=== PATIENT | female | born 1985 | race Caucasian/White ===

== ENCOUNTER → 2016-12-24 | Outpatient (CLI) | payer OTHER | END | disposition home or self-care (01) | LOC: C.LABSPEC 18:03 | PROVIDERS: ATTEND Physician Assistant | DX: N89.8 Other specified noninflammatory disorders of vagina (principal) ==

== ENCOUNTER → 2018-04-11 | Outpatient (CLI) | payer OTHER ==
[2018-04-11 09:54] LABS: BASO % 0.2 %; BASO ABS # 0.02 K/uL (0-0.2); EOS % 0.5 %; EOS ABS # 0.04 K/uL (0-0.5); HEMATOCRIT 38.8 % (37-47); HEMOGLOBIN 13.5 g/dL (12.0-16.0); IG# 0.02 K/uL (0.00-0.02); LYMPH % 28.8 %; LYMPH ABS # 2.41 K/uL (1.2-3.4); MEAN CELL VOLUME 92.8 fL (80-100); MEAN CORPUSCULAR HEMOGLOBIN 32.3 pg (25-34); MEAN CORPUSCULAR HGB CONC 34.8 g/dl (32-36); MONO % 6.3 %; MONO ABS # 0.53 K/uL (0.11-0.59); NEUT ABS # 5.34 K/uL (1.4-6.5); PLATELET COUNT 212 K/uL (130-400); RED CELL DISTRIBUTION WIDTH SD 40.8 fL (36.4-46.3); WHITE BLOOD COUNT 8.36 K/uL (4.8-10.8)
== END | disposition home or self-care (01) ==
LOC: C.LAB1850 08:49
PROVIDERS: ATTEND Obstetrics & Gynecology
DX: Z34.81 Encounter for supervision of other normal pregnancy, first trimester (principal); Z3A.00 Weeks of gestation of pregnancy not specified

== ENCOUNTER → 2018-04-11 | Outpatient (CLI) | payer OTHER | END | disposition home or self-care (01) | LOC: C.PAPS 11:09 | PROVIDERS: ATTEND Obstetrics & Gynecology | DX: Z34.81 Encounter for supervision of other normal pregnancy, first trimester (principal); Z3A.00 Weeks of gestation of pregnancy not specified ==

== ENCOUNTER 2018-04-29 20:53 | Emergency (ER) | payer OTHER ==
[~2018-04-29] VITALS: Ht 162.6 cm; Wt 64.2 kg
[2018-04-29 20:59] VITALS: TEMP 37; Ht 162.6 cm; Wt 64.2 kg
[2018-04-29] MEDS ORDERED: AMOX250C3 PO (21:19)
[2018-04-29] MEDS ORDERED: PRENTAB26 PO (21:21)
--- NOTE | 2018-04-29 21:31 | EMERGENCY ROOM VISIT NOTE ---
History First contact with patient: 21:17 Chief Complaint: ED VAG BLEEDING Stated Complaint: 10 WKS PREG - VAGINAL BLEEDING History of Present Illness The patient is a 32 year old female who presents to the Emergency Room with complaints of vaginal bleeding and . The patient states she is currently approximately 10-11 weeks . She reports that she began developing pinkish vaginal bleeding approximately 2 hours prior to arrival. She states that there is a small amount of blood when she wipes, but she has not noticed any blood in the toilet or on her underwear. She reports some associated lower abdominal cramping pain which she rates a 4/10. She states this is on both sides and radiates slightly into the back. She has had 2 previous pregnancies which both went full-term. She does state that she had bleeding with both of these pregnancies, although she believes it was earlier in the . She denies any medical problems. She is seeing [facility] and did have an ultrasound recently which confirmed an IUP. She denies nausea/vomiting, changes in bowel movements or urinary symptoms. Review of Systems A complete 10 point review of systems was reviewed with the patient with pertinent positives and negatives as per history of present illness. All else were negative. Past Medical/Surgical History Medical Problems: (1) No significant active problems Social History Smoking Status: Former Smoker Marital Status: Housing Status: lives with family Current/Historical Medications Scheduled Amoxicillin (Amoxil), 1 CAP PO TID Multivit/Min/Iron/Fol Ac/Pren ( Vitamin), 1 TAB PO DAILY Physical Exam Vital Signs Date Time Temp Pulse Resp B/P (MAP) Pulse Ox O2 Delivery O2 Flow Rate FiO2 04/29/18 23:32 73 18 106/74 100 Room Air 04/29/18 20:59 37.0 69 16 124/81 100 Room Air Physical Exam VITALS: Vitals are noted on the nurse's note and reviewed by myself. Vital signs stable. GENERAL: This is a 32-year-old female, in no acute distress, nondiaphoretic, well-developed well-nourished. SKIN: The skin is without rashes. HEENT: Normocephalic. PERRLA. Mucous membranes moist. Neck supple with trachea midline. HEART: Regular rate and rhythm without murmurs gallops or rubs. LUNGS: Clear to auscultation bilaterally without wheezes, rales or rhonchi. ABDOMEN: Positive bowel sounds x 4. Soft, no tenderness to palpation. NEURO: Patient was alert and oriented to person place and time. Medical Decision & Procedures ER Provider Diagnostic Interpretation: LTD 1 OR MORE FETUSES HISTORY: 32 years-old Female , vaginal bleeding acute vaginal bleeding with COMPARISON: None available TECHNIQUE: Multiple real-time sonographic images of the deep pelvic structures were obtained transabdominally and transvaginally assessing grayscale appearance, color and spectral flow with M-mode analysis FINDINGS: TRANSABDOMINAL: Anteflexed gravid uterus with single living intrauterine gestation, heart rate measured at 162 bpm. [place]-rump length measures 3.8 cm correlating with estimated gestational age of 10 weeks and 5 days. There is a hypoechoic collection within the subchorionic tissues anteriorly and inferiorly to the gestational sac, 0.8 x 0.8 x 2.2 cm on image 17. The right ovary measures 3.5 x 2.3 x 2.1 cm and is unremarkable. Arterial inflow to the right ovary is documented. The left ovary measures 2.6 x 3.5 x 1.9 cm and also demonstrates arterial inflow and venous outflow. Peripheral enhancement about a hypoechoic structure of the left ovary measures 1.4 cm suggesting corpus luteum. TRANSVAGINAL: Trace fluid within the cervical canal. Left corpus luteum with otherwise unremarkable appearance of the ovaries. No significant free pelvic fluid. [place]-rump length measures 4.1 cm correlating with estimated gestational age of 11 weeks 0 days. Estimated date of delivery calculated at 11/18/2017. No significant free pelvic fluid. IMPRESSION: 1. Single living intrauterine gestation with estimated gestational age by crown-rump length of 11 weeks and 0 days. Estimated date of delivery calculated at 11/18/2017. 2. 2.2 cm hypoechoic collection adjacent to the anteroinferior gestational sac suggests subchorionic hematoma. Attention at follow-up recommended. 3. Small left corpus luteum with otherwise unremarkable appearance of the ovaries. Laboratory Results 04/29/18 21:45 Red Blood Count 4.43, Mean Corpuscular Volume 91.0, Mean Corpuscular Hemoglobin 32.7, Mean Corpuscular Hemoglobin Concent 36.0, Mean Platelet Volume 10.9, Neutrophils (%) (Auto) 64.1, Lymphocytes (%) (Auto) 29.9, Monocytes (%) (Auto) 5.3, Eosinophils (%) (Auto) 0.3, Basophils (%) (Auto) 0.2, Neutrophils # (Auto) 6.50, Lymphocytes # (Auto) 3.03, Monocytes # (Auto) 0.54, Eosinophils # (Auto) 0.03, Basophils # (Auto) 0.02 04/29/18 21:45 Test 04/29/18 21:45 04/29/18 21:54 White Blood Count 10.14 K/uL (4.8-10.8) Red Blood Count 4.43 M/uL (4.2-5.4) Hemoglobin 14.5 g/dL (12.0-16.0) Hematocrit 40.3 % (37-47) Mean Corpuscular Volume 91.0 fL (80-100) Mean Corpuscular Hemoglobin 32.7 pg (25-34) Mean Corpuscular Hemoglobin Concent 36.0 g/dl (32-36) Platelet Count 209 K/uL (130-400) Mean Platelet Volume 10.9 fL (7.4-10.4) Neutrophils (%) (Auto) 64.1 % Lymphocytes (%) (Auto) 29.9 % Monocytes (%) (Auto) 5.3 % Eosinophils (%) (Auto) 0.3 % Basophils (%) (Auto) 0.2 % Neutrophils # (Auto) 6.50 K/uL (1.4-6.5) Lymphocytes # (Auto) 3.03 K/uL (1.2-3.4) Monocytes # (Auto) 0.54 K/uL (0.11-0.59) Eosinophils # (Auto) 0.03 K/uL (0-0.5) Basophils # (Auto) 0.02 K/uL (0-0.2) RDW Standard Deviation 39.2 fL (36.4-46.3) RDW Coefficient of Variation 11.7 % (11.5-14.5) Immature Granulocyte % (Auto) 0.2 % Immature Granulocyte # (Auto) 0.02 K/uL (0.00-0.02) Anion Gap 11.0 mmol/L (3-11) Est Creatinine Clear Calc Drug Dose 118.3 ml/min Estimated GFR () 140.6 Estimated GFR (Non- 121.3 BUN/Creatinine Ratio 11.0 (10-20) Calcium Level 8.6 mg/dl (8.5-10.1) Total Bilirubin 0.6 mg/dl (0.2-1) Aspartate Amino Transf (AST/SGOT) 13 U/L (15-37) Alanine Aminotransferase (ALT/SGPT) 21 U/L (12-78) Alkaline Phosphatase 47 U/L (45-117) Total Protein 7.7 gm/dl (6.4-8.2) Albumin 4.0 gm/dl (3.4-5.0) Globulin 3.7 gm/dl (2.5-4.0) Albumin/Globulin Ratio 1.1 (0.9-2) Human Chorionic Gonadotropin, Quant 19122 mIU/mL Urine Color YELLOW Urine Appearance CLEAR (CLEAR) Urine pH 6.0 (4.5-7.5) Urine Specific [place] 1.005 (1.000-1.030) Urine Protein NEG (NEG) Urine Glucose (UA) NEG (NEG) Urine Ketones 1+ (NEG) Urine Occult Blood 2+ (NEG) Urine Nitrite NEG (NEG) Urine Bilirubin NEG (NEG) Urine Urobilinogen NEG (NEG) Urine Leukocyte Esterase NEG (NEG) Urine WBC (Auto) 0 /hpf (0-5) Urine RBC (Auto) 0-4 /hpf (0-4) Urine Hyaline Casts (Auto) 1-5 /lpf (0-5) Urine Epithelial Cells (Auto) 10-20 /lpf (0-5) Urine Bacteria (Auto) NEG (NEG) Medical Decision Differential diagnosis includes spontaneous , ectopic , subchorionic hematoma, placenta previa, among others. The patient is a 32-year-old female who presents today complaining of vaginal bleeding and . Patient has had minimal vaginal bleeding. Labs revealed no leukocytosis, anemia or concerning electrolyte abnormalities. Beta hCG was appropriate for gestational age at 73,383. ultrasound was performed and showed a live IUP with subchorionic hematoma. Patient was advised to follow-up with [facility]. She will return for worsening bleeding, worsening pain, or other new/concerning symptoms. The patient's case was reviewed with Dr. Vargas, ED attending physician, who agreed with my assessment and treatment plan. Based on the patient's presentation and work up, I feel the patient is stable for outpatient treatment. The patient was educated to return to the emergency department for any worsening of their current condition or new/concerning symptoms. She will follow up with [facility]. Medication Reconcilliation Current Medication List: was personally reviewed by me Blood Pressure Screening Patient's blood pressure: Normal blood pressure Impression Primary Impression: Vaginal bleeding during Departure Information Dispostion Home / Self-Care Condition GOOD Referrals Jelly Valdes DO (PCP) Patient Instructions My [facility] Additional Instructions Contact your [facility] on Wednesday morning to schedule follow-up. Pelvic rest: Nothing in the vagina until follow-up with [facility]. Return to the emergency department with heavy vaginal bleeding, vomiting, worsening pain or any other new/concerning symptoms.
[2018-04-29 22:03] LABS: BASO % 0.2 %; BASO ABS # 0.02 K/uL (0-0.2); EOS % 0.3 %; EOS ABS # 0.03 K/uL (0-0.5); HEMATOCRIT 40.3 % (37-47); HEMOGLOBIN 14.5 g/dL (12.0-16.0); IG# 0.02 K/uL (0.00-0.02); LYMPH % 29.9 %; LYMPH ABS # 3.03 K/uL (1.2-3.4); MEAN CORPUSCULAR HEMOGLOBIN 32.7 pg (25-34); MEAN PLATELET VOLUME 10.9 fL (7.4-10.4); MONO % 5.3 %; MONO ABS # 0.54 K/uL (0.11-0.59); NEUT % 64.1 %; PLATELET COUNT 209 K/uL (130-400); RED CELL DISTRIBUTION WIDTH CV 11.7 % (11.5-14.5); RED CELL DISTRIBUTION WIDTH SD 39.2 fL (36.4-46.3); WHITE BLOOD COUNT 10.14 K/uL (4.8-10.8)
[2018-04-29 22:18] LABS: CALCIUM 8.6 mg/dl (8.5-10.1); CREATININE 0.59 mg/dl (0.60-1.20); POTASSIUM 3.1 mmol/L (3.5-5.1); TOTAL PROTEIN 7.7 gm/dl (6.4-8.2)
--- NOTE | 2018-04-29 23:05 | DIAGNOSTIC IMAGING REPORT ---
LTD 1 OR MORE FETUSES HISTORY: 32 years-old Female , vaginal bleeding acute vaginal bleeding with COMPARISON: None available TECHNIQUE: Multiple real-time sonographic images of the deep pelvic structures were obtained transabdominally and transvaginally assessing grayscale appearance, color and spectral flow with M-mode analysis FINDINGS: TRANSABDOMINAL: Anteflexed gravid uterus with single living intrauterine gestation, heart rate measured at 162 bpm. [place]-rump length measures 3.8 cm correlating with estimated gestational age of 10 weeks and 5 days. There is a hypoechoic collection within the subchorionic tissues anteriorly and inferiorly to the gestational sac, 0.8 x 0.8 x 2.2 cm on image 17. The right ovary measures 3.5 x 2.3 x 2.1 cm and is unremarkable. Arterial inflow to the right ovary is documented. The left ovary measures 2.6 x 3.5 x 1.9 cm and also demonstrates arterial inflow and venous outflow. Peripheral enhancement about a hypoechoic structure of the left ovary measures 1.4 cm suggesting corpus luteum. TRANSVAGINAL: Trace fluid within the cervical canal. Left corpus luteum with otherwise unremarkable appearance of the ovaries. No significant free pelvic fluid. [place]-rump length measures 4.1 cm correlating with estimated gestational age of 11 weeks 0 days. Estimated date of delivery calculated at 11/18/2017. No significant free pelvic fluid. IMPRESSION: 1. Single living intrauterine gestation with estimated gestational age by crown-rump length of 11 weeks and 0 days. Estimated date of delivery calculated at 11/18/2017. 2. 2.2 cm hypoechoic collection adjacent to the anteroinferior gestational sac suggests subchorionic hematoma. Attention at follow-up recommended. 3. Small left corpus luteum with otherwise unremarkable appearance of the ovaries. The above report was generated using voice recognition software. It may contain grammatical, syntax or spelling errors. Electronically signed by: Srinivas Patel M.D. 04/29/2018 11:03 PM Dictated Date/Time: 04/29/2018 10:59 PM
[2018-04-29 23:32] VITALS: BP 106/74; PULSE 73; O2SAT 100
== END 2018-04-29 23:57 | disposition home or self-care (01) ==
LOC: C.EDB 20:54
DX: O20.8 Other hemorrhage in early pregnancy (principal); Z3A.11 11 weeks gestation of pregnancy; Z87.891 Personal history of nicotine dependence

== ENCOUNTER 2018-11-21 22:31 | Inpatient (IN) ==
[2018-11-21] MEDS ORDERED: PENICILLIN G POTASSIUM 6 MU in DEXTROSE 5% 250 ML IV STA (22:34)
[2018-11-21] MEDS ORDERED: PENICILLIN G POTASSIUM 3 MU in DEXTROSE 5% 100 ML IV PRN (22:34)
[2018-11-21] MEDS ORDERED: LACTATED RINGER'S 1,000 ML IV PRN ×2 (22:34→23:09)
[2018-11-21] MEDS ORDERED: LACTATED RINGER'S 1,000 ML IV SCH (22:45)
--- NOTE | 2018-11-21 22:45 | History & Physical Report ---
Date of Service November 21, 2018 Assessment & Plan (1) Normal intrauterine in third trimester: Fetus: Cat 1 Labor: SROM. Painful contractions q4min Vitals: stable GBS + : PCN PPH: Low risk (2) SROM (spontaneous rupture of membranes): (3) GBS carrier: History of Present Illness Primary Care Provider: Jelly Valdes DO 33yo at 40 weeks GA. Patient presents with SROM. Denies VB. Good FM. complicated by GBS+ Allergies Allergy/AdvReac Type Severity Reaction Status Date / Time No Known Allergies Allergy Unverified 04/29/18 21:23 Home Medications Home Medications Medication Instructions Recorded Confirmed Type AMOXICILLIN (AMOXIL) 1 cap PO TID 7 Days #0 cap 04/29/18 History Multivit/Min/Iron/Fol Ac/Pren 1 tab PO DAILY #0 tab 04/29/18 History ( Vitamin) Physical Exam Vital Signs (Past 24 Hours): Last Vital Signs Pulse 71 11/21/18 22:35 BP 135/80 11/21/18 22:35 Genitourinary: Manual OB Exam: + cervical dilation 4 cm, + cervical effacement 80%, + station -1 and + amniotic fluid clear OB Exam Monitor Tracing: + category I
[2018-11-21] MEDS ORDERED: fentaNYL citrate 100 MCG/2 ML VIAL ONE (22:54)
[2018-11-21] MEDS ORDERED: fentaNYL 2MCG/ML ROPIV 1.25MG/ML 100 ML BAG EPI ONE (22:54)
[2018-11-21] MEDS ORDERED: ePHEDrine sulfate 50 MG/ML AMP ONE (22:54)
[2018-11-21] MEDS ORDERED: BUPIVACAINE 0.25% 30 ML VIAL ONE (22:54)
[2018-11-21 22:56] LABS: Hematocrit (blood only) 35.3 % (37-47); Hemoglobin 12.6 g/dL (12.0-16.0); Mean Corpuscular Volume 91.9 fL (80-100); Mean Platelet Volume 10.4 fL (7.4-10.4); Platelet Count 180 K/uL (130-400); RDW Coefficient of Variation 12.5 % (11.5-14.5); RDW Standard Deviation 41.8 fL (36.4-46.3); Red Blood Count 3.84 M/uL (4.2-5.4); White Blood Count 16.55 K/uL (4.8-10.8)
[2018-11-21 23:01] LABS: Mean Corpuscular Hgb Conc 35.7 g/dL (32-36)
[2018-11-21] MEDS ORDERED: DiphenhydrAMINE HCL 50 MG/ML VIAL IV PRN (23:09)
[2018-11-21] MEDS ORDERED: fentaNYL 2MCG/ML ROPIV 1.25MG/ML 100 ML BAG EPI PRN (23:09)
[2018-11-21] MEDS ORDERED: ONDANSETRON INJ 2 MG/ML 2 ML VIAL IV PRN (23:09)
[2018-11-21] MEDS ORDERED: NALOXONE HCL 0.4 MG/1 ML VIAL/CARP IV PRN (23:09)
[2018-11-21] MEDS ORDERED: ePHEDrine sulfate 50 MG/ML AMP IV PRN (23:09)
[2018-11-21] MEDS ORDERED: NALOXONE HCL 1 MG in SODIUM CHLORIDE 0.9% 1000ML 1,000 ML IV PRN (23:09)
[2018-11-21] MEDS ORDERED: NALBUPHINE HCL INJ 10 MG/ML AMP IV PRN (23:09)
--- NOTE | 2018-11-21 23:13 | Anesthesiology Consultation ---
Date of Service November 21, 2018 Assessment & Plan (1) Encounter for pre-operative examination: Chart Review Chart Review: Patient NOT seen in Pre Admission Testing and Acceptable Risk for Labor Epidural Consults Requested none History Height/Weight Height: 5 ft 4 in Weight: 75.189 kg Allergies Allergy/AdvReac Type Severity Reaction Status Date / Time No Known Allergies Allergy Unverified 04/29/18 21:23 Medications Home Medications Medication Instructions Recorded Confirmed Last Taken AMOXICILLIN (AMOXIL) 1 cap PO TID 7 Days #0 cap 04/29/18 Unknown Multivit/Min/Iron/Fol Ac/Pren 1 tab PO DAILY #0 tab 04/29/18 Unknown ( Vitamin) Active Medications Generic Name Dose Route Start Last Admin Trade Name Freq PRN Reason Stop Dose Admin Lactated Ringer's 1,000 mls @ 999 mls/hr 11/21/18 22:34 11/21/18 22:52 Lr IV 12/21/18 22:33 999 mls/hr .Q1H1M PRN Administration (Pre-Anesthesia) Penicillin G Potassium 6 mu/ 262 mls @ 262 mls/hr 11/21/18 22:34 11/21/18 23:00 Dextrose IV 11/21/18 23:33 262 mls/hr NOW STA Administration Past Medical History none Past Surgical History none Past Anesthesia History No Hx of Anesthesia Complications and No Family Hx of Anesthesia Complications History of PONV No Motion Sickness Screening History of Motion Sickness: No Social History Smoking Status: Former smoker Do You Dip or Chew Tobacco: No Smoking End Date: 11/14/2010 Hx Alcohol Use: No Hx Substance Use: No Exercise / Class Metabolic Activity II 4-5 Yardwork/Stairs/Walk up hill Physical Exam Vital Signs Last Vital Signs Temp 36.8 C 11/21/18 22:37 Pulse 97 H 11/21/18 23:04 Resp 18 11/21/18 22:37 BP 135/80 11/21/18 22:37 Pulse Ox 99 11/21/18 23:04 Testing Laboratory Results 11/21/18 22:42
[2018-11-22] MEDS: OXYTOCIN 30 UNITS/500 ML BAG IV PRN ×2 (00:29→01:08)
[2018-11-22] MEDS ORDERED: ACETAMINOPHEN 325 MG TAB PO PRN (01:15)
[2018-11-22] MEDS ORDERED: BISACODYL 10 MG SUPP PR PRN (01:15)
[2018-11-22] MEDS ORDERED: OXYTOCIN 30 UNITS/500 ML BAG IV PRN (01:15)
[2018-11-22] MEDS ORDERED: DIPHTHERIA/TETANUS/PERTUSSIS 0.5 ML SYR/VIAL IM ONE (01:15)
[2018-11-22] MEDS ORDERED: BENZOCAINE 20% AER SPR 82.5 GM CAN EXT PRN (01:15)
[2018-11-22] MEDS ORDERED: HYDROCORTISONE ACETATE 25 MG SUPP PR PRN (01:15)
[2018-11-22] MEDS ORDERED: SUPERCREAM 0.870% 15 GM JAR EXT PRN (01:15)
[2018-11-22] MEDS: IBUPROFEN 600 MG TAB PO PRN ×3 (07:37→23:09)
[2018-11-22] MEDS ORDERED: INFLUENZA ADMINISTRATION CHARGE ONE (07:45)
[2018-11-22] MEDS ORDERED: INFLUENZA VIRUS QUAD VACCINE 0.5 ML SYR IM ONE (07:45)
--- NOTE | 2018-11-22 07:46 | Anesthesia Procedure Note ---
Date of Service November 22, 2018 Anesthesia Post Epidural Note Vital Signs Vital Signs: Temp Pulse Resp BP Pulse Ox 36.5 C 78 16 115/69 97 11/22/18 03:32 11/22/18 03:32 11/22/18 03:32 11/22/18 03:32 11/22/18 03:32 Pain Intensity Back: Pain Intensity: 0 Notes Mental Status: alert / awake / arousable and participated in evaluation Nausea / Vomiting: adequately controlled Pain: adequately controlled Airway Patency, RR, SpO2: stable & adequate BP & HR: stable & adequate Hydration State: stable & adequate Neuraxial Anesthesia: was administered and sensory block is resolving Anesthetic Complications: no major complications apparent and Pt Satisfied with anesthetic care Epidural: Removed without complications and With tip intact
[2018-11-22] MEDS: PRENATAL VITAMIN 1 TAB PO SCH (08:46)
[2018-11-22] MEDS: DOCUSATE SODIUM 100 MG CAP PO SCH ×2 (08:46→20:16)
[2018-11-23] MEDS: IBUPROFEN 600 MG TAB PO PRN ×3 (03:37→20:41)
--- NOTE | 2018-11-23 06:24 | Obstetrical Progress Note ---
Date of Service November 23, 2018 Assessment & Plan (1) (spontaneous vaginal delivery): -vital signs reviewed and WNL -last Hgb 12.6 -Blood type: O+, GBS+, Rubella Immune -pt doing well clinically -encourage ambulation, monitor and control pain with motrin tylenol, cont regular diet, monitor lochia -cont encourage breast feeding Subjective 33 y/o PPD1 found in bed this morning in NAD. Reports no acute overnight events. Pt states that she has no pain other than appropriate soreness. Tolerating PO intake without N/V. Able to ambulate without issue. She is breast feeding without issue. No issues with voiding, no BM yet. No other acute concerns or complaints. Review of Systems All systems reviewed & are unremarkable except as noted in HPI & below Physical Exam Vital Signs (Past 24 Hours) Last Vital Signs Temp 36.9 C 11/22/18 23:00 Pulse 68 11/22/18 23:00 Resp 18 11/22/18 23:00 BP 94/52 L 11/22/18 23:00 Pulse Ox 98 11/22/18 15:45 Constitutional WD/WN, vitals as above Eyes PERRL, conjunctivae normal, anicteric sclerae ENMT external ear and nose normal, oropharynx normal Respiratory normal respiratory effort, lungs clear to auscultation Cardiovascular RRR, no murmur, no edema Gastrointestinal (Abdomen) mild abd tenderness Skin no rashes, warm and dry Psychiatric A+Ox3, euthymic affect Lymphatic no LE swelling, no calf tenderness Results & Data Medications Administered Current Inpatient Medications Acetaminophen (Tylenol) 650 mg PO Q6H PRN PRN Reason: Pain/WERNER/Fever Stop: 12/22/18 01:14 Benzocaine (Dermoplast Pain Relieving [place]) 1 appln EXT PRN PRN PRN Reason: Perineal Discomfort Stop: 12/22/18 01:14 Last Admin: 11/22/18 07:37 Dose: 82.5 appln Documented by: Bisacodyl (Dulcolax) 10 mg [place] DAILY PRN PRN Reason: No BM on 2nd post- day Stop: 12/22/18 01:14 Bisacodyl (Dulcolax) 5 mg PO 2000 NAYELY Stop: 11/23/18 20:01 Cocaine HCl (Supercream 0.870%) 1 gm EXT BID PRN PRN Reason: Hemorrhoidal Inflammation Stop: 12/06/18 01:14 Docusate Sodium (Colace) 100 mg PO BID [facility] Stop: 12/22/18 08:59 Last Admin: 11/22/18 20:16 Dose: 100 mg Documented by: Hydrocortisone (Anusol Hc) 25 mg [place] BID PRN PRN Reason: Hemorrhoidal Inflammation Stop: 12/22/18 01:14 Lactated Ringer's (Lr) 1,000 mls @ 125 mls/hr IV .Q8H [facility] Stop: 11/23/18 22:44 Last Infusion: 11/22/18 01:00 Dose: Infused Documented by: Oxytocin (Pitocin) 30 units in 500 mls @ 333.333 mls/hr IV .Q1H30M PRN; Protocol PRN Reason: BLEEDING CONTROL Ibuprofen (Motrin) 600 mg PO Q4H PRN PRN Reason: Pain/WERNER/Cramping/Fever Stop: 12/22/18 01:14 Last Admin: 11/23/18 03:37 Dose: 600 mg Documented by: Prenat Multivit/[place]/Iron/Folic Ac ( Vitamin) 1 tab PO QAM [facility] Stop: 12/22/18 08:59 Last Admin: 11/22/18 08:46 Dose: 1 tab Documented by: Resident Activity Tracking Resident Involvement: Resident Care Provided Care Provided: OB Delivery
[2018-11-23 07:02] LABS: Hematocrit (blood only) 32.4 % (37-47); Hemoglobin 11.1 g/dL (12.0-16.0); Mean Corpuscular Hgb Conc 34.3 g/dL (32-36); Mean Corpuscular Volume 93.1 fL (80-100); Mean Platelet Volume 10.9 fL (7.4-10.4); Platelet Count 162 K/uL (130-400); RDW Coefficient of Variation 12.8 % (11.5-14.5); RDW Standard Deviation 42.8 fL (36.4-46.3); Red Blood Count 3.48 M/uL (4.2-5.4); White Blood Count 15.05 K/uL (4.8-10.8)
[2018-11-23] MEDS: DOCUSATE SODIUM 100 MG CAP PO SCH ×2 (08:47→20:41)
[2018-11-23] MEDS: PRENATAL VITAMIN 1 TAB PO SCH (08:47)
[2018-11-23] MEDS ORDERED: BISACODYL 5 MG TABEC PO SCH (20:00)
[2018-11-24] MEDS: IBUPROFEN 600 MG TAB PO PRN (04:57)
--- NOTE | 2018-11-24 06:41 | Obstetrical Progress Note ---
Date of Service <Xavi SairaVladimir Murphy, DO - Last Filed: 11/24/18 06:41> November 24, 2018 Assessment & Plan <Xavi Murphy - Last Filed: 11/24/18 06:41> (1) (spontaneous vaginal delivery): -vital signs reviewed and WNL -last Hgb 11.1 -Blood type: O+, GBS+, Rubella Immune -pt doing well clinically -encourage ambulation, monitor and control pain with motrin tylenol, cont regular diet, monitor lochia -cont encourage breast feeding -plan for d/c today Subjective <Xavi SairaVladimir Murphy DO - Last Filed: 11/24/18 06:41> 33 y/o PPD2 found in bed this morning in NAD. Reports no acute overnight events. Pt states that she has no pain other than appropriate soreness. Tolerating PO intake without N/V. Able to ambulate without issue. She is breast feeding without issue. No issues with voiding, no BM yet. No other acute concerns or complaints. Pt ok with plan for d/c today. Review of Systems All systems reviewed & are unremarkable except as noted in HPI & below Physical Exam <Xavi Murphy DO - Last Filed: 11/24/18 06:41> Vital Signs (Past 24 Hours) Last Vital Signs Temp 36.4 C L 11/23/18 23:00 Pulse 68 11/23/18 23:00 Resp 16 11/23/18 23:00 BP 107/68 11/23/18 23:00 Pulse Ox 98 11/23/18 23:00 Constitutional WD/WN, vitals as above Eyes PERRL, conjunctivae normal, anicteric sclerae ENMT external ear and nose normal, oropharynx normal Respiratory normal respiratory effort, lungs clear to auscultation Cardiovascular RRR, no murmur, no edema Gastrointestinal (Abdomen) mild abd tenderness Skin no rashes, warm and dry Psychiatric A+Ox3, euthymic affect Lymphatic no LE swelling, no calf tenderness Results & Data <Xavi SairaVladimir Murphy DO - Last Filed: 11/24/18 06:41> Laboratory Results Laboratory Results - last 24 hr 11/23/18 06:17 WBC 15.05 H RBC 3.48 L Hgb 11.1 L Hct 32.4 L MCV 93.1 MCH 31.9 MCHC 34.3 RDW Std Deviation 42.8 RDW Coeff of Kathleen 12.8 Plt Count 162 MPV 10.9 H Medications Administered Current Inpatient Medications Acetaminophen (Tylenol) 650 mg PO Q6H PRN PRN Reason: Pain/WERNER/Fever Stop: 12/22/18 01:14 Benzocaine (Dermoplast Pain Relieving [place]) 1 appln EXT PRN PRN PRN Reason: Perineal Discomfort Stop: 12/22/18 01:14 Last Admin: 11/22/18 07:37 Dose: 82.5 appln Documented by: Bisacodyl (Dulcolax) 10 mg [place] DAILY PRN PRN Reason: No BM on 2nd post- day Stop: 12/22/18 01:14 Cocaine HCl (Supercream 0.870%) 1 gm EXT BID PRN PRN Reason: Hemorrhoidal Inflammation Stop: 12/06/18 01:14 Docusate Sodium (Colace) 100 mg PO BID [facility] Stop: 12/22/18 08:59 Last Admin: 11/23/18 20:41 Dose: 100 mg Documented by: Hydrocortisone (Anusol Hc) 25 mg [place] BID PRN PRN Reason: Hemorrhoidal Inflammation Stop: 12/22/18 01:14 Oxytocin (Pitocin) 30 units in 500 mls @ 333.333 mls/hr IV .Q1H30M PRN; Protocol PRN Reason: BLEEDING CONTROL Ibuprofen (Motrin) 600 mg PO Q4H PRN PRN Reason: Pain/WERNER/Cramping/Fever Stop: 12/22/18 01:14 Last Admin: 11/24/18 04:57 Dose: 600 mg Documented by: Prenat Multivit/[place]/Iron/Folic Ac ( Vitamin) 1 tab PO QAM [facility] Stop: 12/22/18 08:59 Last Admin: 11/23/18 08:47 Dose: 1 tab Documented by: <Nick Travis Jr, MD, FACOG - Last Filed: 11/24/18 07:19> Co-Signing Physician Notes Resident Physician Supervision Note: I was present with Dr. Murphy during the history and exam. I discussed the case with the resident and agree with the findings and plan as documented in the note. Any exceptions or clarifications are listed here: Patient desires d/c, instructions given, f/u in 6 weeks Documented By: Nick Travis Jr, MD, FACOG Resident Activity Tracking <Xavi Murphy, DO - Last Filed: 11/24/18 06:41> Resident Involvement: Resident Care Provided Care Provided: OB Delivery
[2018-11-24 07:18] LABS: Hematocrit (blood only) 35.2 % (37-47); Hemoglobin 12.1 g/dL (12.0-16.0)
[2018-11-24] MEDS: PRENATAL VITAMIN 1 TAB PO SCH (08:12)
[2018-11-24] MEDS: DOCUSATE SODIUM 100 MG CAP PO SCH (08:12)
--- NOTE | 2018-11-28 13:17 | Delivery Summary ---
DATE OF OPERATION: 11/22/2018 PROCEDURE: Normal spontaneous vaginal delivery with second degree laceration repair. SURGEON: Cristian Garcia MD PREOPERATIVE DIAGNOSES: 1. Single intrauterine at 40 weeks' gestational age. 2. Spontaneous rupture of membranes. 3. GBS positive. POSTOPERATIVE DIAGNOSES: 1. Single intrauterine at 40 weeks' gestational age. 2. Spontaneous rupture of membranes. 3. GBS positive. 4. Delivered. ESTIMATED BLOOD LOSS: 300 mL. DRAINS: None. FLUIDS: Continuous lactated ringer. URINE OUTPUT: Not measured. COMPLICATIONS: None. FINDINGS: Viable with Apgars of 8 and 9 and weight pending. INDICATIONS: Ms. Guerrero is a 33-year-old G3, P2-0-0-2, admitted at 40 weeks' gestational age with spontaneous rupture of membranes in labor. The patient was noted to be GBS positive and was started on penicillin. She received an epidural for anesthesia and progressed in labor without further augmentation to complete-complete, +2 at which time she felt the urge to push. DESCRIPTION OF PROCEDURE: The patient progressed to 10 cm wide, dilated, 100% effaced, positive 2 station, pushed over intact perineum with epidural anesthesia and delivered a viable . Head of the delivered in RYLAN position, rest into right transverse. No nuchal cord was noted. Body and shoulders quickly followed. The was noted to be vigorous soon after delivery. Cord was then double clamped and cut. was handed off to the awaiting nursery staff. Cord blood was then obtained. Attention was then turned to delivery. The placenta was delivered intact with 3-vessel cord with gentle cord traction. There was noted to be a second-degree perineal laceration which was repaired with a 3-0 Vicryl in traditional fashion. Needle, sponge and instrument counts were correct at the completion of the case. I attest to the content of the Intraoperative Record and any orders documented therein. Any exception s are noted below.
== END 2018-11-24 13:30 | disposition home or self-care (01) | DRG 807 ==
LOC: OPB 22:31 → 4S1 22:33 → 4S2 11-22 02:35